=== PATIENT | female | born 1975 | race Caucasian/White ===

== ENCOUNTER 2016-11-24 13:46 | Emergency (ER) | payer OTHER ==
[~2016-11-24] VITALS: Ht 160 cm; Wt 52.2 kg
[2016-11-24] MEDS ORDERED: CLON0.5T PO (13:57)
[2016-11-24] MEDS ORDERED: VENL100T4 PO (13:57)
--- NOTE | 2016-11-24 15:47 | NUR ---
Patient discharged to home in stable conditon. Written and verbal after care instructions given to patient. Patient verbalizes understanding of instructions.
== END 2016-11-24 15:48 | disposition home or self-care (01) ==
LOC: ER 13:46
DX: L03.116 Cellulitis of left lower limb (principal); F32.9 Major depressive disorder, single episode, unspecified; E78.00 Pure hypercholesterolemia, unspecified
CPT/HCPCS: 73590; 73630; 93971; 99284; A4663